=== PATIENT | male | born 2000 | race Caucasian/White ===

== ENCOUNTER 2018-05-06 19:43 | Emergency (ER) | payer OTHER, SELFPAY ==
--- NOTE | 2018-05-06 20:50 | RAD ---
RIGHT KNEE FOUR VIEWS: HISTORY: Injury. Right knee pain. FINDINGS: No acute fracture or dislocation is identified. POS: [facility]
== END 2018-05-06 20:40 | disposition home or self-care (01) ==
LOC: BURERS 19:43
DX: S83.411A Sprain of medial collateral ligament of right knee, initial encounter (principal); F17.210 Nicotine dependence, cigarettes, uncomplicated; X50.1XXA Overexertion from prolonged static or awkward postures, initial encounter

== ENCOUNTER 2019-01-22 22:05 | Emergency (ER) | payer SELFPAY ==
[2019-01-22] MEDS ORDERED: Azithromycin 500 MG VIAL ONE (22:54)
[2019-01-22] MEDS ORDERED: Ibuprofen 200 MG TAB ONE (22:54)
[2019-01-22] MEDS ORDERED: Azithromycin 250 MG TAB ONE (22:55)
== END 2019-01-22 23:00 | disposition home or self-care (01) ==
LOC: BURERS 22:05
DX: J02.9 Acute pharyngitis, unspecified (principal); F17.210 Nicotine dependence, cigarettes, uncomplicated
CPT/HCPCS: 87081; 87430; 87804; 99283; J0456

== ENCOUNTER 2019-07-30 17:28 | Emergency (ER) | payer BC, SELFPAY ==
[2019-07-30] MEDS ORDERED: Ciprofloxacin 500 MG TAB ONE (17:52)
[2019-07-30] MEDS ORDERED: Dicyclomine 20 MG TAB ONE (17:52)
== END 2019-07-30 17:55 | disposition home or self-care (01) ==
LOC: BURERS 17:28
DX: R19.7 Diarrhea, unspecified (principal); F17.210 Nicotine dependence, cigarettes, uncomplicated
CPT/HCPCS: 99283

== ENCOUNTER 2021-09-17 17:41 | Emergency (ER) | payer SELFPAY ==
[2021-09-17] MEDS ORDERED: Acetaminophen/Codeine 30-300mg Tablet ONE (18:14)
[2021-09-17] MEDS ORDERED: Ketorolac Tromethamine 60 MG/2 ML VIAL ONE (18:14)
[2021-09-17] MEDS ORDERED: Boostrix 0.5 ML (Tdap) VIAL ONE (18:14)
[2021-09-17] MEDS ORDERED: Bacitracin 1 PK ONE ×2 (18:34→18:38)
== END 2021-09-17 18:54 | disposition home or self-care (01) ==
LOC: BURERS 17:41
DX: T24.102A Burn of first degree of unspecified site of left lower limb, except ankle and foot, initial encounter (principal); S09.312A Primary blast injury of left ear, initial encounter; S70.311A Abrasion, right thigh, initial encounter; F17.210 Nicotine dependence, cigarettes, uncomplicated; X08.8XXA Exposure to other specified smoke, fire and flames, initial encounter
CPT/HCPCS: 90471; 90715; 93005; 96372; J1885